=== PATIENT | male | born 1985 | race Two or more races ===

== ENCOUNTER 2021-01-20 07:31 | Emergency (ER) | payer BC, OTHER ==
[~2021-01-20] VITALS: Ht 172.7 cm; Wt 109.0 kg
[2021-01-20] MEDS ORDERED: MORPHINE SULFATE 4 MG/ML CPJ (NOT FOR IM USE) IV STA (07:53)
[2021-01-20] MEDS ORDERED: MAGNESIUM/ALUMINUM HYDROXIDE/SIMETHICONE 30ML UDC PO STA (07:53)
[2021-01-20] MEDS ORDERED: FAMOTIDINE 20MG/2ML VIAL IV STA (07:53)
[2021-01-20] MEDS ORDERED: DICYCLOMINE 10 MG/5 ML ORAL SYR PO STA (07:53)
[2021-01-20] MEDS ORDERED: VISCOUS LIDOCAINE 2% 15 ML UDC PO STA (07:53)
[2021-01-20] MEDS ORDERED: ONDANSETRON HCL 4MG/2ML INJ IV STA (07:53)
[2021-01-20 08:22] LABS: BASOPHILS % 0.6 % (0.0-2.0); EOSINOPHILS % 0.8 % (0.0-5.0); HEMATOCRIT. 48.7 % (42.0-52.0); HEMOGLOBIN. 15.9 g/dL (14.0-18.0); LYMPHOCYTES % 16.9 % (20.0-50.0); MEAN CORPUSCULAR VOLUME 88.8 fL (80.0-94.0); MEAN PLATELET VOLUME 8.6 fl (7.4-10.4); MONOCYTES % 4.6 % (2.0-8.0); NEUTROPHILS % 77.1 % (40.0-76.0); PLATELET 274 x1000/uL (130-400); RED BLOOD CELL COUNT 5.49 mill/uL (4.7-6.1); RED CELL DISTRIBUTION WIDTH 14.1 % (11.6-14.6)
[2021-01-20 08:24] LABS: CHLORIDE 108 mEq/L (98-107)
[2021-01-20 08:28] LABS: PROTHROMBIN TIME 10.6 sec (9.6-11.0)
[2021-01-20] MEDS ORDERED: MORPHINE SULFATE 4 MG/ML CPJ (NOT FOR IM USE) IV ONE (09:30)
[2021-01-20] MEDS ORDERED: ONDA4TAB5 PO (12:27)
[2021-01-20] MEDS ORDERED: TOPUD PO (12:27)
[2021-01-20 13:13] VITALS: BP 117/80
== END 2021-01-20 13:19 | disposition home or self-care (01) ==
LOC: ER 07:31 → CANBEDREQ 12:44 → ER 13:19
DX: R10.13 Epigastric pain (principal)
CPT/HCPCS: 36415; 74176; 80053; 83690; 85025; 85610; 93005; 96374; 96375; 96376; 99285; J2270; J2405; J3490